=== PATIENT | male | born 1995 | race African-American/Black ===

== ENCOUNTER 2019-06-02 15:47 | Emergency (ER) | payer OTHER ==
[2019-06-02 15:54] VITALS: BMI 52.7
[2019-06-02] MEDS ORDERED: DIPHTH,PERTUSS(ACELL),TET 0.5 ML DISP.SYRIN IM ONE ×2 (17:10→18:23)
--- NOTE | 2019-06-02 18:27 | PDOC ---
Documentation entered by Stephie Emery SCRIBE, acting as scribe for Diamante Gil MD. Diamante Gil MD: This documentation has been prepared by the Rupert watt Sammi, SCRIBE, under my direction and personally reviewed by me in its entirety. I confirm that the documentation accurately reflects all work, treatment, procedures, and medical decision making performed by me. Attending Attestation - Resident Resident Name: Kylie Mckenzie - ED Attending Attestation I have performed the following: I have examined & evaluated the patient, The case was reviewed & discussed with the resident, I agree w/resident's findings & plan, Exceptions are as noted - HPI HPI: 06/02/19 18:01 The patient is a 23 year old male, with no significant PMH, who presents to the emergency department for evaluation of a laceration to the right chest. The patient states he was rolling in bed when he cut himself on a razor in the sheets that he was unaware was there. Denies other injury. Denies intentional injury. Denies suicidal or homicidal actions. The patient states he is doing well otherwise. Patient cannot recall last tetanus shot. Allergies: NKA PCP: [facility] - Physicial Exam PE: 06/02/19 18:02 agree with resident exam - Medical Decision Making 06/02/19 18:23 23yo M presents to the ED with uncomplicated laceration to the R chest Wound is superficial, was washed out and sutured by Dr. Mckenzie (see note for details) Tdap updated Initially tachycardic on arrival, will rpt vitals prior to DC 06/02/19 18:40 HR normalized BP elevated to 150s/90s Discussed with pt, he is asymptomatic Advised pt to f/u with PMD for BP recheck within 1 week I discussed the physical exam findings, ancillary test results and final diagnoses with the patient. I answered all of the patient's questions. The patient was satisfied with the care received and felt comfortable with the discharge plan and treatment plan. The patient will call their primary care physician within 24 hours to arrange follow-up and will return to the Emergency Department with any new, persistent or worsening symptoms.
--- NOTE | 2019-06-02 18:30 | PDOC ---
History of Present Illness - General Chief Complaint: Laceration Stated Complaint: RT CHEST LACERATION Time Seen by Provider: 06/02/19 16:51 - History of Present Illness Initial Comments: Carmelo Paris is an otherwise healthy 23yo man who prsents with a laceration to the right chest. He states that he was over at his mother's house today, and some teenagers there earlier today (family members) were sitting on a spare bed playing with a razor blade. He states that the razor was apparently left in the bed and hidden by the blankets. He took a nap later in the afternoon , and he says that when he turned over in bed the razor cut his chest. He presented immediately to the ED. He has never had any similar injuries in the past, and he does not recall when his last tetanus shot was. Past History - Past Medical History Allergies/Adverse Reactions: Allergies Allergy/AdvReac Type Severity Reaction Status Date / Time No Known Allergies Allergy Verified 06/02/19 15:53 Home Medications: Ambulatory Orders Cephalexin [Keflex] 500 mg PO BID #14 capsule 03/13/16 Sulfamethoxazole/Trimethoprim [Bactrim Ds -] 1 tab PO BID #14 tablet 03/13/16 COPD: No - Immunization History Immunization Up to Date: Yes - Suicide/Smoking/Psychosocial Hx Smoking History: Unknown if ever smoked Have you smoked in the past 12 months: No Number of Cigarettes Smoked Daily: 2 Information on smoking cessation initiated: No 'Breaking Loose' booklet given: 06/18/15 Hx Alcohol Use: No Drug/Substance Use Hx: No Substance Use Type: None Review of Systems - Review of Systems Comments:: General: No fevers, no chills, no weight or appetite change, no malaise HEENT: No changes in vision, no changes in hearing, no congestion, no sore throat CV: No chest pain, no palpitations, no LE edema Pulm: No SOB, no cough, no wheezing GI: No nausea or vomiting, no change in bowel habits, no melena : No frequency, no urgency, no dysuria Musc: No back pain, no joint swelling, no recent injury Skin: No rash, no lesions, no erythema Endo: No excessive thirst, no heat/cold intolerance Heme: No unusual bruising or bleeding, no swollen glands Neuro: No syncope, no numbness/tingling, no focal weakness Vasc: No claudication Psych: No recent change in mood, no SI or HI *Physical Exam - Vital Signs Last Vital Signs Temp Pulse Resp BP Pulse Ox 98 F 109 H 19 114/68 99 06/02/19 15:51 06/02/19 15:51 06/02/19 15:51 06/02/19 15:51 06/02/19 16:45 - Physical Exam Comments: General: Comfortable, no acute distress HEENT: Atraumatic, PERRL, EOMI, MMM, voice normal, normal neck ROM Cards: RRR, no murmur appreciated Chest wall: 2cm linear laceration over the right chest wall. Lac includes the lateral areola but not the nipple. Minimal oozing blood, no active bleeding. Edges of wound approximate easily Pulm: Comfortable on room air, clear to auscultation bilaterally Rectal: Normal tone, no blood noted, no perianal lesions Ext: Atraumatic. No LE edema. ROM intact Vasc: Extremities WWP Skin: Cut on chest wall as above. No other rash or lesion. Neuro: A&Ox3, CN grossly intact, normal speech, motor/sensory grossly intact and symmetric Psych: Mood appropriate to situation Procedures - Laceration/Wound Repair Right Anterior Chest Wound Length: to 2.5 cm Wound Explored: clean Wound's Depth, Shape: superficial Irrigated w/ Saline: Yes Anesthesia: 1% Lidocaine Amount of Anesthetic (ccs): 5 Wound Repaired With: Sutures Suture Size/Type: 4:0 Number of Sutures: 8 Layer Closure: No Sterile Dressing Applied: Yes Medical Decision Making - Medical Decision Making 06/02/19 17:25 Carmelo Paris is an otherwise healthy 23yo man who prsents with a laceration to the right chest after being cut by a razor blade accidentally left in his bed. - Laceration on right chest wall appears clean, linear and easy to approximate. Given location, gaps open w/ upper extremity movements, required sutures. - Tetanus to be updated 06/02/19 18:34 - The wound was anesthetized using 5cc of 1% lidocaine. It was then irrigated with copious saline and explored. The wound was noted to be relatively superficial, to subQ tissue without any muscle involvement. The wound was then repaired using 4-0 nylon suture. 8 simple interrupted stitches were placed. The wound edges were well approximated, and adequate hemostasis was achieved. Bacitracin and a clean gauze dressing were applied to the wound. - Discussed home care, follow up and return precautions. Discussed suture removal. Mr Paris states understanding and agreement with the plan. Discussed with Dr Gil and Dr Stanton. Kylie Mckenzie PGY2 *DC/Admit/Observation/Transfer Diagnosis at time of Disposition: Laceration - Discharge Dispostion Disposition: HOME Condition at time of disposition: Stable Decision to Admit order: No - Referrals Referrals: Chris Guerin MD [Primary Care Provider] - - Patient Instructions Printed Discharge Instructions: DI for Laceration Repair Additional Instructions: Discharge Instructions: You were seen in the emergency department with a laceration to your right chest. The laceration was repaired with 8 stitches. Home Care: - You should avoid getting the wound wet for at least 24 hours. After 24hrs, you may shower normally. It is OK to use a plain soap and allow water to run over the wound. Do not scrub at the wound, and pat dry after washing. Do not rub with a towel. - After 24hrs you may remove the bandage and leave the wound open to air. - You may change the dressing and reapply bacitracin tomorrow. Otherwise, do not apply any lotions, ointments, creams or other topical medications to the wound - Some redness and swelling is expected after an injury. You may see a small amount of bleeding or pinkish drainage on the bandage when you remove it. This is normal. - You may use acetaminophen (Tylenol) or ibuprofen (Advil, Motrin) as needed for pain. Please follow the directions on the bottle for dosing information. Follow Up: - You will need to be seen in 7-10 days for suture removal. You can return to the emergency room or see your regular doctor. - Your blood pressure was high in the emergency department and should be repeated when you visit your primary care doctor within 1 week. - Seek immediate medical care if your wound becomes significantly more painful, swollen, red, you have a large amount of thick drainage, you have fevers to 101F or higher, or you have red streaking from the wound. - Post Discharge Activity
[2019-06-02 18:35] VITALS: BP 150/93; PULSE 91; TEMP 98.4
[2019-06-02] MEDS ORDERED: ACETAMINOPHEN 325 MG TABLET (FP) PO ONE (18:49)
[2019-06-02] MEDS ORDERED: ACETAMINOPHEN 325 MG TABLET (FP) ONE (18:50)
== END 2019-06-02 19:16 | disposition home or self-care (01) ==
LOC: JER 15:47
PROC: 0HQ5XZZ Repair Chest Skin, External Approach (ICD-10-PCS; principal; 2019-06-02)
PROC: 3E0234Z Introduction of Serum, Toxoid and Vaccine into Muscle, Percutaneous Approach (ICD-10-PCS; 2019-06-02)
DX: S21.111A Laceration without foreign body of right front wall of thorax without penetration into thoracic cavity, initial encounter (principal); W26.0XXA Contact with knife, initial encounter; Y93.84 Activity, sleeping; Y92.89 Other specified places as the place of occurrence of the external cause
CPT/HCPCS: 90715; 99282-25

== ENCOUNTER 2020-02-01 18:23 | Emergency (ER) | payer OTHER ==
--- NOTE | 2020-02-01 18:33 | PDOC ---
Rapid Medical Evaluation Time Seen by Provider: 02/01/20 18:30 Medical Evaluation: Allergies Allergy/AdvReac Type Severity Reaction Status Date / Time No Known Allergies Allergy Verified 06/02/19 15:53 02/01/20 18:30 CC: chest tightness radiating to back; morbid obesity PE: No chest tenderness. Lungs CTAB. Orders: cardiac w/u Patient will proceed to ED for further evaluation. Discharge Disposition - Diagnosis Chest pain - Referrals - Patient Instructions - Post Discharge Activity
[2020-02-01 18:35] VITALS: BMI 51.3
[2020-02-01 18:59] LABS: BASO % 0.8 % (0-2.0); EOS % 4.6 % (0-4.5); HEMATOCRIT 39.5 % (35.4-49); HEMOGLOBIN 12.5 GM/dL (11.7-16.9); LYMPH % 27.7 % (8-40); MCH 24.9 pg (25.7-33.7); MCHC 31.5 g/dl (32.0-35.9); MEAN CELL VOLUME 78.9 fl (80-96); MEAN PLT VOLUME 9.2 fl (7.5-11.1); MONO % 6.3 % (3.8-10.2); NEUT % 60.6 % (42.8-82.8); PLATELET COUNT 308 K/MM3 (134-434); RDW 16.5 % (11.9-15.9); WHITE BLOOD COUNT 8.8 K/mm3 (4.0-10.0)
[2020-02-01] MEDS ORDERED: IBUPROFEN 400 MG TABLET (FP) PO ONE (19:20)
--- NOTE | 2020-02-01 19:20 | PDOC ---
History of Present Illness - General Chief Complaint: Chest Pain Stated Complaint: BACK PAIN Time Seen by Provider: 02/01/20 18:30 History Source: Patient - History of Present Illness Initial Comments: 02/01/20 19:18 24 year old male c/o b/l upper back pain reports worse with movement since this morning. reports sleeping on his abdomen/ chest last night on a " rough bed" Denies dizziness, nausea, vomiting, diaphoresis, abdominal pain Past History - Past Medical History Allergies/Adverse Reactions: Allergies Allergy/AdvReac Type Severity Reaction Status Date / Time No Known Allergies Allergy Verified 02/01/20 18:33 Home Medications: Ambulatory Orders Cephalexin [Keflex] 500 mg PO BID #14 capsule 03/13/16 Sulfamethoxazole/Trimethoprim [Bactrim Ds -] 1 tab PO BID #14 tablet 03/13/16 Ibuprofen 600 mg PO QID PRN #20 tablet 02/01/20 COPD: No - Immunization History Immunization Up to Date: Yes - Psycho Social/Smoking Cessation Hx Smoking History: Current every day smoker Have you smoked in the past 12 months: No Number of Cigarettes Smoked Daily: 2 Information on smoking cessation initiated: No 'Breaking Loose' booklet given: 06/18/15 Hx Alcohol Use: No Drug/Substance Use Hx: Yes (PERCOCET) Substance Use Type: None Review of Systems - Review of Systems Able to Perform ROS?: Yes Is the patient limited Polish proficient: No Constitutional: No: Symptoms Reported, See HPI, Chills, Diaphoresis, Fever, Loss of Appetite, Malaise, Night Sweats, Weakness, Weight Stable, Unintentional Wgt. Loss, Unexplained wgt Loss, Other Cardiac (ROS): Yes: Chest Pain, Other (rib pain) ABD/GI: No: Symptoms Reported, See HPI, Abdominal Distended, Abd. Pain w/ defecation, Blood Streaked Bowels, Constipated, Diarrhea, Difficulty Swallowing , Nausea, Poor Appetite, Poor Fluid Intake, Rectal Bleeding, Vomiting, Indigestion, Abdominal cramping, Tarry Stools, Other *Physical Exam - Vital Signs Last Vital Signs Temp Pulse Resp BP Pulse Ox 98.8 F 88 18 129/86 98 02/01/20 19:15 02/01/20 19:15 02/01/20 19:15 02/01/20 19:15 02/01/20 19:15 - Physical Exam General Appearance: Yes: Appropriately Dressed, Obese Respiratory/Chest: positive: Chest Tender (posterior rib pain), Lungs Clear, Normal Breath Sounds Cardiovascular: positive: Regular Rhythm, Regular Rate Gastrointestinal/Abdominal: positive: Normal Bowel Sounds, Soft. negative: Tender ED Treatment Course - LABORATORY CBC & Chemistry Diagram: 02/01/20 18:40 02/01/20 18:40 - ADDITIONAL ORDERS Additional order review: Laboratory Results 02/01/20 02/01/20 18:40 18:40 Sodium 139 Potassium 4.0 Chloride 104 Carbon Dioxide 29 Anion Gap 6 L BUN 9.2 Creatinine 0.9 Est GFR (CKD-EPI)AfAm 138.06 Est GFR (CKD-EPI)NonAf 119.12 Random Glucose 110 H Calcium 9.3 Magnesium 2.1 Total Bilirubin 0.4 AST 16 ALT 22 Alkaline Phosphatase 70 Creatine Kinase 349 H Creatine Kinase Index No Result Required. CK-MB (CK-2) < 1.0 Troponin I < 0.02 Total Protein 8.1 Albumin 3.6 02/01/20 18:40 RBC 5.00 MCV 78.9 L MCHC 31.5 L RDW 16.5 H MPV 9.2 Neutrophils % 60.6 Lymphocytes % 27.7 D Monocytes % 6.3 Eosinophils % 4.6 H D Basophils % 0.8 - Medications Given in the ED: ED Medications Discontinued Medications Generic Name Dose Route Start Last Admin Trade Name Freq PRN Reason Stop Dose Admin Ibuprofen 800 mg 02/01/20 19:20 02/01/20 19:40 Motrin - PO 02/01/20 19:21 Not Given ONCE ONE Ibuprofen 600 mg 02/01/20 19:35 02/01/20 19:40 Motrin - PO 02/01/20 19:36 600 mg ONCE ONE Administration Medical Decision Making - Medical Decision Making A: chest pain P: labs EKG chest xray ibuprofen 02/01/20 20:18 patient has pain relief with ibuprofen will d/ chome Discharge - Discharge Information Problems reviewed: Yes Clinical Impression/Diagnosis: Acute chest wall pain Disposition: HOME - Additional Discharge Information Prescriptions: Ibuprofen 600 mg PO QID PRN #20 tablet PRN Reason: Back Pain - Follow up/Referral Referrals: Chris Guerin MD [Primary Care Provider] - - Patient Discharge Instructions Patient Printed Discharge Instructions: DI for Chest Pain Additional Instructions: take ibuprofen eveyr 6 hours for pain follow up with your doctor as soon as possible. - Post Discharge Activity Work/Back to School Note: Back to Work
[2020-02-01] MEDS ORDERED: IBUPROFEN 600 MG TABLET (FP) PO ONE ×2 (19:26→19:35)
[2020-02-01 19:36] LABS: ALBUMIN 3.6 g/dl (3.4-5.0); BILIRUBIN,TOTAL 0.4 mg/dL (0.2-1); BLOOD UREA NITROGEN 9.2 mg/dL (7-18); CALCIUM 9.3 mg/dL (8.5-10.1); CREATININE 0.9 mg/dL (0.55-1.3); MAGNESIUM 2.1 mg/dL (1.8-2.4); TOT PROT 8.1 g/dl (6.4-8.2)
[2020-02-01 19:47] VITALS: BP 129/86; PULSE 88; TEMP 98.8
--- NOTE | 2020-02-02 08:44 | EKG ---
Test Reason : Blood Pressure : / mmHG Vent. Rate : 078 BPM Atrial Rate : 078 BPM P-R Int : 182 ms QRS Dur : 106 ms QT Int : 380 ms P-R-T Axes : 051 071 048 degrees QTc Int : 433 ms NORMAL SINUS RHYTHM NORMAL ECG WHEN COMPARED WITH ECG OF 18-DEC-2014 00:08, NO SIGNIFICANT CHANGE WAS FOUND Confirmed by MD JUAN, DEBRA ([id number]) on 02/02/2020 8:43:48 AM Referred By: Confirmed By:DEBRA MARTINEZ MD
== END 2020-02-01 20:35 | disposition home or self-care (01) ==
LOC: JER 18:23
DX: R07.89 Other chest pain (principal); E66.01 Morbid (severe) obesity due to excess calories; Z68.43 Body mass index [BMI] 50.0-59.9, adult
CPT/HCPCS: 36415; 71046-TC-FY; 80053; 82550; 82553; 83735; 84484; 85025; 93005; 93010; 99285-25